=== PATIENT | female | born 1970 | race Caucasian/White ===

== ENCOUNTER 2022-04-09 14:35 | Outpatient (CLI) | payer OTHER, SELFPAY ==
[2022-04-09 22:58] LABS: Vitamin B12* 239 pg/mL (243-894)
== END 2022-04-09 14:36 | disposition home or self-care (01) ==
LOC: LKVREF 14:36
PROVIDERS: Visit Provider Emergency Medicine
DX: R20.2 Paresthesia of skin (principal)
CPT/HCPCS: 82607

== ENCOUNTER 2022-10-14 13:00 | Outpatient (CLI) | payer OTHER, SELFPAY | END 2022-10-14 13:01 | disposition home or self-care (01) | LOC: NFLDREF 10-16 12:55 | PROVIDERS: PCP Nurse Practitioner Family; Referring Provider Nurse Practitioner Family; Visit Provider Nurse Practitioner Family | DX: Z79.899 Other long term (current) drug therapy (principal) | CPT/HCPCS: 80053; 82306; 84443 ==

== ENCOUNTER 2023-03-02 14:18 | Outpatient (CLI) | payer OTHER, SELFPAY | END 2023-03-02 14:19 | disposition home or self-care (01) | LOC: NFLDREF 14:20 | PROVIDERS: PCP Nurse Practitioner Family; Visit Provider Nurse Practitioner Family | DX: E56.9 Vitamin deficiency, unspecified (principal) | CPT/HCPCS: 82607 ==

== ENCOUNTER 2024-01-17 10:55 | Outpatient (CLI) | payer OTHER, SELFPAY | END 2024-01-17 10:56 | disposition home or self-care (01) | PROVIDERS: Visit Provider Physician Assistant | DX: Z01.419 Encounter for gynecological examination (general) (routine) without abnormal findings (principal); E10.9 Type 1 diabetes mellitus without complications; D50.9 Iron deficiency anemia, unspecified; Z83.49 Family history of other endocrine, nutritional and metabolic diseases; Z13.6 Encounter for screening for cardiovascular disorders | CPT/HCPCS: 80061; 82947; 84443 ==

== ENCOUNTER 2024-01-31 12:53 | Outpatient (CLI) | payer OTHER, SELFPAY ==
--- NOTE | 2024-01-31 13:00 | CRLHL7_ITS ---
For Patients: As a result of the Cures Act, medical imaging exams and procedure reports are released immediately into your electronic medical record. You may view this report before your referring provider. If you have questions, please contact your health care provider. BILATERAL SCREENING MAMMOGRAM WITH COMPUTER-AIDED DETECTION AND TOMOSYNTHESIS TECHNIQUE: CC and MLO views were obtained. These mammographic images have been obtained using full-field digital technique. These mammographic images were interpreted with the benefit of computer-aided detection. Breast Tomosynthesis was used in this interpretation. COMPARISON FILM: 12/08/22, 03/15/20, 06/15/18. FINDINGS: There are scattered areas of fibroglandular density IMPRESSION: There is no radiographic evidence for malignancy. ASSESSMENT: BI-RADS Category 1: Negative RECOMMENDATION: Routine screening mammogram in 1 year. A lay language report of this examination will be provided to the patient. KATE RÍOS M.D. Diagnostic/Nuclear Medicine Radiologist [email or web address] [email or web address] Transcribed: 12:49 p.mKae prescott/Dictated by: Kate Ríos MD @ 02/03/2024 8:44:00 AM (Electronically Signed)
== END 2024-01-31 12:54 | disposition home or self-care (01) ==
LOC: MAMMO 12:54
PROVIDERS: Visit Provider Physician Assistant
DX: Z12.31 Encounter for screening mammogram for malignant neoplasm of breast (principal)
CPT/HCPCS: 77063; 77067

== ENCOUNTER 2024-02-21 07:53 | Outpatient (CLI) | payer OTHER, SELFPAY ==
--- NOTE | 2024-02-21 09:36 | W.ANESCHARGE ---
Anesthesia Charges Start Date/Time Anesthesia Start Date: 02/21/24 Anesthesia Start Time: 08:54 Stop Date/Time Anesthesia Stop Date: 02/21/24 Anesthesia Stop Time: 09:34
== END 2024-02-21 07:54 | disposition home or self-care (01) ==
LOC: OP CLINIC 07:54
PROVIDERS: Visit Provider Surgery
DX: Z12.11 Encounter for screening for malignant neoplasm of colon (principal)
CPT/HCPCS: 00812; 45378; J2704

== ENCOUNTER 2024-06-23 00:44 | Outpatient (CLI) | payer OTHER, SELFPAY | END 2024-06-23 00:45 | disposition home or self-care (01) | LOC: AMB 06-24 01:33 | PROVIDERS: PCP Family Medicine; Visit Provider Internal Medicine | DX: E11.649 Type 2 diabetes mellitus with hypoglycemia without coma (principal) | CPT/HCPCS: A0998 ==

== ENCOUNTER 2025-02-26 14:10 | Outpatient (CLI) | payer OTHER, SELFPAY | END 2025-02-26 14:11 | disposition home or self-care (01) | PROVIDERS: PCP Family Medicine; Visit Provider Family Medicine | DX: I10 Essential (primary) hypertension (principal); E10.9 Type 1 diabetes mellitus without complications | CPT/HCPCS: 80048; 80061 ==